=== PATIENT | male | born 1950 | race Caucasian/White ===

== ENCOUNTER 2016-12-18 10:11 | Emergency (ER) | payer OTHER ==
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
[2016-12-18 10:28] VITALS: PULSE 65; RESP 16
[2016-12-18] MEDS ORDERED: LET GEL TOPICAL 1 EA SYR TP ONE (10:34)
[2016-12-18 11:26] VITALS: BP 115/65; TEMP 97.5; O2SAT 96
== END 2016-12-18 11:32 | disposition home or self-care (01) ==
DX: S50.311A Abrasion of right elbow, initial encounter (principal); S06.0X0A Concussion without loss of consciousness, initial encounter; G20 Parkinson's disease; Z79.82 Long term (current) use of aspirin; V18.0XXA Pedal cycle driver injured in noncollision transport accident in nontraffic accident, initial encounter; Y93.55 Activity, bike riding